=== PATIENT | female | born 1990 | race Caucasian/White ===

== ENCOUNTER 2017-06-09 11:57 | Emergency (ER) | payer OTHER ==
[~2017-06-09] VITALS: Ht 165.1 cm; Wt 87.6 kg
[~2017-06-09 11:57] MED LIST: NOHOMEMEDS
[2017-06-09] MEDS ORDERED: MEDROL DOSEPAK4 MG PO (15:46)
[2017-06-09 16:02] VITALS: BP 128/78
== END 2017-06-09 16:03 | disposition home or self-care (01) ==
LOC: EME 11:57
DX: T78.40XA Allergy, unspecified, initial encounter (principal); K21.9 Gastro-esophageal reflux disease without esophagitis; Z98.890 Other specified postprocedural states; Z88.0 Allergy status to penicillin; Z91.040 Latex allergy status
CPT/HCPCS: 99281; 99284; J1200; J2930; S0028

== ENCOUNTER 2017-07-02 18:00 | Emergency (ER) | payer OTHER ==
[~2017-07-02] VITALS: Ht 165.1 cm; Wt 89.8 kg
[~2017-07-02 18:00] MED LIST changes: +MEDROL DOSEPAK4 MG PO
[2017-07-02 20:06] LABS: HEMATOCRIT 38.7 % (36.0-46.0); HEMOGLOBIN 12.9 G/DL (11.9-15.5); MCH 26.8 PG (29.0-34.0); MCHC 33.3 G/DL (30.0-36.0); MCV 80.3 FL (83-99); PLATELET COUNT 277 K/uL (156-360); RBC DIS.WIDTH-SD 37.7 % (39-53); RED BLOOD COUNT 4.82 M/uL (3.80-5.20); WHITE BLOOD COUNT 6.1 K/uL (4.1-10.2)
[2017-07-02 20:21] LABS: CHLORIDE 107 mEq/L (99-109); POTASSIUM 3.7 mEq/L (3.7-5.4); SODIUM 140 mEq/L (136-147)
[2017-07-02 20:22] LABS: GLUCOSE 89 mg/dL (70-99)
[2017-07-02 20:26] LABS: CREATININE 0.7 mg/dL (0.6-1.3); GFR ESTIMATE (CALCULATED) > 59 mL/min/
[2017-07-02 20:27] LABS: UREA NITROGEN (BUN) 6 mg/dL (9-23)
[2017-07-02 20:31] LABS: TROP-I INTERPRETATION NEGATIVE; TROPONIN-I < 0.01 ng/mL (0.0-0.30)
[2017-07-02] MEDS ORDERED: ROBITUSSIN100 MG/5 M PO (21:20)
[2017-07-02] MEDS ORDERED: FLONASE16 G1 BOTH NARES (21:20)
[2017-07-02 21:31] VITALS: BP 141/70
== END 2017-07-02 21:32 | disposition home or self-care (01) ==
LOC: EME 18:00
PROVIDERS: Nurse Practitioner Family
DX: B34.9 Viral infection, unspecified (principal); R05 Cough; Z98.890 Other specified postprocedural states; K21.9 Gastro-esophageal reflux disease without esophagitis; I34.1 Nonrheumatic mitral (valve) prolapse
CPT/HCPCS: 71046; 80048; 84484; 85027; 85379; 93005; 99281; 99284